=== PATIENT | male | born 1940 | race Caucasian/White ===

== ENCOUNTER → 2016-10-06 | Outpatient (CLI) | payer MEDICARE ==
[~2016-10-06] MED LIST: CATHETER FLUSH 10 ML SYR IV PRN; IOHEXOL 350 MG/ML 100 ML (OMNIPAQUE 350) VIAL IV ONE; NS 100 ML (IVPB) BAG IV ONE
[2016-10-06 10:03] LABS: BLOOD UREA NITROGEN 13 MG/DL (7-18); BUN/CREATININE RATIO 16; CREATININE SERUM 0.82 MG/DL (0.60-1.30); GFR ESTIMATED > 60
--- NOTE | 2016-10-06 12:16 | Diagnostic Imaging Report ---
PROCEDURE: CT neck soft tissue with contrast. TECHNIQUE: Multiple contiguous axial images were obtained through the neck after the administration of contrast. INDICATION: Hoarseness for 3 months. CONTRAST: 75 mL of Omnipaque 350 was administered intravenously. FINDINGS: There is asymmetry in the vocal cords with a slightly contracted appearance of the left vocal cord. This could be related to nerve weakness. The study reaches the level of the arch but does not cover the entire course of the left recurrent laryngeal nerve which would extend to the level of the undersurface area of the arch. The visible portions of the course of this nerve on both sides demonstrate no aggressive appearing mass. The right thyroid lobe is enlarged and heterogenous with an underlying nodule measuring 2.3 x 1.8 cm in size. This appears to be confined to the thyroid gland; however, further evaluation with thyroid ultrasound is recommended. There is no definite mucosal pharyngeal mass. Calcifications in the tonsils are likely secondary to prior infections. The parotid and submandibular glands appear symmetric. The carotid arteries and internal jugular veins demonstrate vascular enhancement with no obvious abnormality. No significantly enlarged cervical chain lymph node is seen. There is moderate mucosal thickening in the ethmoidal air cells and the visualized portions of the frontal sinuses inferior aspect. Also, mild mucosal thickening in the maxillary and sphenoidal sinus is seen. The mastoid air cells and middle ear cavities appear aerated. The osseous structures demonstrate prominent degenerative changes. IMPRESSION: 1. Asymmetry in the vocal cords with no definite underlying mass. Correlate with a laryngeal examination. If there is suspicion for left recurrent laryngeal nerve dysfunction, then CT chest evaluation to evaluate the entire course of this nerve would be suggested. 2. A 2 cm heterogenous nodule/mass in the right thyroid lobe which appears to be confined to the thyroid gland is indeterminate. Further evaluation with a thyroid ultrasound is recommended. 3. The results were faxed to the office of Dr. Hunter by [email or web address]@12:20 PM. Dictated by: Dictated on workstation # [id number]
== END ==
LOC: RAD 09:26
PROVIDERS: ATTEND Otolaryngology Otolaryngology/Facial Plastic Surgery
DX: R49.0 Dysphonia (principal); E04.1 Nontoxic single thyroid nodule; J38.3 Other diseases of vocal cords
CPT/HCPCS: 36415; 70491; 82565; 84520

== ENCOUNTER → 2016-10-19 | Outpatient (CLI) | payer MEDICARE ==
--- NOTE | 2016-10-19 15:24 | Diagnostic Imaging Report ---
INDICATION: Thyroid nodule noted on CT imaging. TECHNIQUE: Grayscale sonographic images of the thyroid gland. CORRELATION STUDY: None. FINDINGS: RIGHT LOBE: Enlarged at 5.6 x 2.1 x 2.6 cm. There is a heterogeneous predominantly solid-appearing mass in the inferior lobe that measures 3.1 x 1.8 x 2.7 cm. Positive vascularity. Linear hypoechoic region is present centrally, may be slightly distorted hypoechoic halo. In the more central medial aspect is a rounded hypoechoic nodule that measured 9 x 8 x 8 mm. LEFT LOBE: Borderline enlarged at 4.9 x 1.4 x 1.7 cm. Very small hypoechoic nodule in the [id number] aspect measures 4 x 3 x 4 mm. Isthmus appears unremarkable. IMPRESSION: 1. Enlarged to borderline enlarged thyroid gland. There is more focal dominant 3 cm mass in the inferior pole of the right lobe. Given the focal dominant appearance, thyroid neoplasm is within the differential. Fine-needle aspiration/biopsy would be recommended. Alternatively, nuclear medicine thyroid scan could be obtained for assessment of potential cold nodule. 2. Additional smaller nodules are present. Dictated by: Dictated on workstation # [id number]
== END ==
LOC: RAD 12:00
PROVIDERS: ATTEND Otolaryngology Otolaryngology/Facial Plastic Surgery
DX: E04.1 Nontoxic single thyroid nodule (principal)
CPT/HCPCS: 36415; 76536; 84443

== ENCOUNTER → 2016-11-11 | Outpatient (CLI) | payer MEDICARE ==
[~2016-11-11] VITALS: Ht 185.4 cm; Wt 95.3 kg
[2016-11-11 09:47] VITALS: BP 130/84
[2016-11-11 10:15] VITALS: BP 122/78
--- NOTE | 2016-11-11 11:10 | Diagnostic Imaging Report ---
EXAMINATION: Dedicated thyroid ultrasound performed with ultrasound guidance provided for FNA performed by Dr. Hunter. Indication: Thyroid nodule FINDINGS: Ultrasound images demonstrate a right thyroid nodule. IMPRESSION: Ultrasound guidance provided for right thyroid nodule FNA. Dictated by: Dictated on workstation # [id number]
== END ==
LOC: RAD 09:36
PROVIDERS: ATTEND Otolaryngology Otolaryngology/Facial Plastic Surgery
DX: E04.1 Nontoxic single thyroid nodule (principal)
CPT/HCPCS: 76942